=== PATIENT | female | born 1935 | race Caucasian/White ===

== ENCOUNTER 2018-06-09 09:55 | Day surgery (SDC) | payer MEDICARE, OTHER ==
[~2018-06-09 09:55] MED LIST: ACETAMINOPHEN 325 MG TAB PO; CYCLOPENTOLATE 2% OPHTH SOLN 2ML BTL OD; LIDOCAINE 3.5 % 1ML OPHTH TOPICAL GEL OU; OFLOXACIN 0.3 % (OCUFLOX) OPTH SOL 5ML OD; PHENYLEPHRINE 2.5% OPHTH SOL 2ML OD; PHENYLEPHRINE HCL 10 % OPHTH. SOL 5ML OD; PROPARACAINE 0.5% OPHTH SOL 15ML OD; TROPICAMIDE 1% OPHTH SOLN 2ML OD
[2018-06-09] MEDS: BALANCED SALT IRRIGATION SOLUTION 500ML BAG (FOR OR EYE MACHINE) As Ordered (12:19)
[2018-06-09] MEDS: POVIDONE-IODINE 5% OPHTH PREP SOL 30ML As Ordered (12:19)
[2018-06-09] MEDS: CEFUROXIME 1MG/0.1ML INTRACAMERAL INJ As Ordered (12:19)
[2018-06-09] MEDS: HEALON DUET PRO(HEALON 10MG/ML 0.55ML & HEALON ENDOCOAT 30MG/ML 0.85ML) As Ordered (12:19)
[2018-06-09] MEDS: LIDOCAINE 1% SDV 5 ML VIAL As Ordered (12:19)
[2018-06-09] MEDS: KETOROLAC 0.5% OPHTH SOLN OD (13:25)
[2018-06-09] MEDS ORDERED: MIDAZOLAM INJ 2 MG/2 ML VIAL (J2250) As Ordered (13:27)
[2018-06-09] MEDS ORDERED: fentaNYL 100 MCG/2 ML INJECTION (J3010) As Ordered (13:27)
[2018-06-09] MEDS ORDERED: LR 1,000 ML IV (13:30)
[2018-06-09] MEDS ORDERED: TRIMETHOBENZAMIDE 300 MG CAP PO (13:30)
[2018-06-09] MEDS ORDERED: ACETAMINOPHEN TAB 650MG DOSE (2X325MG) PO (13:30)
[2018-06-09] MEDS ORDERED: ONDANSETRON 4MG/2ML VIAL (J2405) IV (13:30)
== END 2018-06-09 13:50 | disposition home or self-care (01) ==
LOC: M SDC 09:55
DX: H25.11 Age-related nuclear cataract, right eye (principal); Z79.899 Other long term (current) drug therapy; E03.9 Hypothyroidism, unspecified; Z88.2 Allergy status to sulfonamides
CPT/HCPCS: 66984

== ENCOUNTER 2018-06-30 07:06 | Day surgery (SDC) | payer MEDICARE, OTHER ==
[~2018-06-30 07:06] MED LIST changes: -CYCLOPENTOLATE 2% OPHTH SOLN 2ML BTL OD; -LIDOCAINE 3.5 % 1ML OPHTH TOPICAL GEL OU; -OFLOXACIN 0.3 % (OCUFLOX) OPTH SOL 5ML OD; -PHENYLEPHRINE 2.5% OPHTH SOL 2ML OD; -PHENYLEPHRINE HCL 10 % OPHTH. SOL 5ML OD; +PHENYLEPHRINE HCL 10 % OPHTH. SOL 5ML OS; -PROPARACAINE 0.5% OPHTH SOL 15ML OD; +PROPARACAINE 0.5% OPHTH SOL 15ML OS; -TROPICAMIDE 1% OPHTH SOLN 2ML OD
[2018-06-30] MEDS ORDERED: fentaNYL 100 MCG/2 ML INJECTION (J3010) As Ordered (07:13)
[2018-06-30] MEDS ORDERED: MIDAZOLAM INJ 2 MG/2 ML VIAL (J2250) As Ordered (07:13)
[2018-06-30] MEDS: CYCLOPENTOLATE 2% OPHTH SOLN 2ML BTL OS (08:15)
[2018-06-30] MEDS: TROPICAMIDE 1% OPHTH SOLN 2ML OS (08:16)
[2018-06-30] MEDS: OFLOXACIN 0.3 % (OCUFLOX) OPTH SOL 5ML OS (08:16)
[2018-06-30] MEDS: LIDOCAINE 3.5 % 1ML OPHTH TOPICAL GEL OU (08:16)
[2018-06-30] MEDS: PHENYLEPHRINE 2.5% OPHTH SOL 2ML OS (08:16)
[2018-06-30] MEDS: POVIDONE-IODINE 5% OPHTH PREP SOL 30ML As Ordered (09:37)
[2018-06-30] MEDS: BALANCED SALT IRRIGATION SOLUTION 500ML BAG (FOR OR EYE MACHINE) As Ordered (09:38)
[2018-06-30] MEDS: HEALON DUET PRO(HEALON 10MG/ML 0.55ML & HEALON ENDOCOAT 30MG/ML 0.85ML) As Ordered (09:39)
[2018-06-30] MEDS: CEFUROXIME 1MG/0.1ML INTRACAMERAL INJ As Ordered (09:39)
[2018-06-30] MEDS: LIDOCAINE 1% SDV 5 ML VIAL As Ordered (09:39)
[2018-06-30] MEDS: KETOROLAC 0.5% OPHTH SOLN OS (10:25)
[2018-06-30] MEDS ORDERED: ONDANSETRON 4MG/2ML VIAL (J2405) IV (10:45)
[2018-06-30] MEDS ORDERED: TRIMETHOBENZAMIDE 300 MG CAP PO (10:45)
== END 2018-06-30 10:38 | disposition home or self-care (01) ==
LOC: M SDC 07:06
DX: H25.12 Age-related nuclear cataract, left eye (principal); E03.9 Hypothyroidism, unspecified; M12.9 Arthropathy, unspecified; Z88.1 Allergy status to other antibiotic agents; Z79.899 Other long term (current) drug therapy; Z90.710 Acquired absence of both cervix and uterus; Z96.651 Presence of right artificial knee joint
CPT/HCPCS: 66984